=== PATIENT | female | born 1940 | race Caucasian/White ===

== ENCOUNTER 2021-12-22 14:14 | Outpatient (CLI) | payer OTHER, SELFPAY ==
--- NOTE | 2021-12-22 14:25 | ECHO_ITS ---
Patient Info Name: Savanna Kelly Age: 81 years : 1940 Gender: Female Ht: 64 in Wt: 157 lbs BSA: 1.81 m2 HR: 85 bpm BP: 157 / 89 mmHg Heart Rhythm: Sinus Rhythm Technical Quality: Fair Exam Date: 12/22/2021 2:41 PM Exam Location: [facility] Pul[facility] Patient Status: Outpatient Admit Date: 12/22/2021 Staff Ordering Physician: Boris Bryant DO Ship Scaler: Chelle Ovalles RDCS Attending Provider: Boris Bryant DO Referring Physician: Manny NATION; Exam Type: CA echo doppler color flow Study Info Indications R06.09 - Other forms of dyspnea Complete two-dimensional, color flow and Doppler transthoracic echocardiogram is performed. Summary 1. Complete two-dimensional, color flow and Doppler transthoracic echocardiogram is performed. 2. Left ventricular chamber dimension is normal. 3. Left ventricular systolic function is normal, estimated at 60-65%. 4. The left ventricular diastolic function is grade I diastolic dysfunction. 5. E/e' 9 is minimally elevated. 6. No pulmonary hypertension, estimated pulmonary arterial systolic pressure is 25 mmHg. Left Ventricle E/e' 9 is minimally elevated. Left ventricular chamber dimension is normal. Left ventricular systolic function is normal, estimated at 60-65%. The left ventricular diastolic function is grade I diastolic dysfunction. Right Ventricle Right ventricular chamber dimension is normal. Right ventricular systolic function is normal. Left Atria Left atrial chamber dimension is normal. Right Atria Right atrial chamber dimension is normal. Aortic Valve The aortic valve is trileaflet. There is no aortic valve stenosis. There is no aortic valve regurgitation. Pulmonic Valve There is no pulmonic regurgitation. Mitral Valve There is no mitral valve stenosis. There is no mitral valve regurgitation. Tricuspid Valve There is no tricuspid valve regurgitation. No pulmonary hypertension, estimated pulmonary arterial systolic pressure is 25 mmHg. Pericardium/Pleural There is no pericardial effusion. Inferior Vena Cava Normal inferior vena cava with >50% collapse upon inspiration consistent with normal right atrial pressure, 5 mmHg. Aorta The aortic root size at the sinus of Valsalva is normal. Left Ventricular Outflow Tract Name Value Normal LVOT 2D LVOT Diameter 2.0 cm LVOT Doppler LVOT Peak Gradient 4 mmHg LVOT Mean Gradient 2 mmHg LVOT VTI 17 cm LVOT VTI/AV VTI Ratio 0.8 LVOT Stroke Volume 53 ml LVOT CO 3.7 l/min LVOT CI 2.1 l/min/m2 Pulmonic Valve Name Value Normal RVOT Doppler RVOT Peak Gradient 3 mmHg PV Doppler
== END 2021-12-22 14:15 | disposition home or self-care (01) ==
PROVIDERS: PCP Emergency Medicine; Visit Provider Internal Medicine Cardiovascular Disease
DX: R06.09 Other forms of dyspnea (principal)
CPT/HCPCS: 93306

== ENCOUNTER → 2022-03-16 14:23 | Outpatient (CLI) | payer OTHER, SELFPAY ==
--- NOTE | ~2022-03-16 | DEXA_ITS ---
Bone Density Report Name: ELENI BREWER Age: 81 Sex: Female Ethnicity: White Date of : 1940 Indication: postmenopausal; screening for osteoporosis; height loss; Referring Provider: JUAN MCCAULEY Study: Bone densitometry was performed. Exam Date: March 16, 2022 Accession number: [id number] Bone Density: Region BMD T-score Z-score Classification AP Spine (L2, L3, L4) 1.066 -0.1 2.8 Normal Femoral Neck (Left) 0.743 -1.0 1.5 Normal Total Hip (Left) 0.898 -0.4 1.9 Normal Femoral Neck (Right) 0.729 -1.1 1.3 Osteopenia Total Hip (Right) 0.895 -0.4 1.8 Normal Total Hip Mean 0.897 -0.4 1.9 Normal World Health Organization criteria for BMD impression classify patients as: Normal (T-score at or above -1.0), Osteopenia (T-score between -1.0 and -2.5), or Osteoporosis (T-score at or below -2.5). 10-year Fracture Risk(1): Major Osteoporotic Fracture 12% Hip Fracture 2.7% Reported Risk Factors: [place] (), Neck BMD=0.729, BMI=27.9 (1) FRAX(R) Version 3.08. Fracture probability calculated for an untreated patient. Fracture probability may be lower if the patient has received treatment. Previous Exams: Region Exam Age BMD T-score BMD Change BMD Change Date g/cm2 vs Baseline vs Previous AP Spine(L2, L3, L4) 03/16/2022 81 1.066 -0.1 -0.050* 0.014 02/19/2019 78 1.053 -0.2 -0.064* -0.064* 10/30/2016 76 1.116 0.3 Total Hip(Left) 03/16/2022 81 0.898 -0.4 -0.023 0.001 02/19/2019 78 0.897 -0.4 -0.024 -0.024 10/30/2016 76 0.920 -0.2 Total Hip(Right) 03/16/2022 81 0.895 -0.4 0.001 0.008 02/19/2019 78 0.887 -0.5 -0.008 -0.008 10/30/2016 76 0.895 -0.4 *Denotes significance at 95% confidence level, LSC for AP Spine = 0.022 g/cm2, LSC for Total Hip = 0.027 g/cm2 Clinical Information Provided by Patient: Has used the following medications: Vitamin D, Calcium Patient maximum height was 64.5 Menopause Age: 52 No regular weight bearing exercise Drinks caffeinated beverages Onset of menses at age 11 Number of children 3 Impression: The patient has low bone mass, based on the Right Femoral Neck T-score. The patient has an estimated ten-year risk of hip fracture of 2.7% and an estimated ten-year risk of major fracture of 12%, based on the WHO FRAX algorithm. No significant bone loss was obs
== END ==
PROVIDERS: PCP Emergency Medicine; Visit Provider Emergency Medicine
DX: Z78.0 Asymptomatic menopausal state (principal); M85.851 Other specified disorders of bone density and structure, right thigh
CPT/HCPCS: 77080

== ENCOUNTER 2022-03-18 09:43 | Emergency (ER) | payer OTHER, SELFPAY ==
--- NOTE | ~2022-03-18 | XR_ITS ---
XR wrist RT 2V 03/18/2022 10:10 Indication: Right wrist pain and swelling Procedure: 2 views right wrist Comparison: No prior studies for comparison. Findings: There is advanced osteoarthritis of the triscaphe and first carpal metacarpal joint. There is widening of the scapholunate distance. Osteopenia. There is a small ossific density dorsal to the carpal bones, suspicious for an old triquetral avulsion fracture. No acute fracture is identified. Th ere is an old ulnar styloid fracture. Impression: 1: No acute fracture. 2: Polyarticular osteoarthritis. Reviewed, dictated and finalized at location A. Impression: 1: No acute fracture. 2: Polyarticular osteoarthritis.
[2022-03-18 09:54] VITALS: BP 154/82; PULSE 86; RESP 20; TEMP 36.9; O2SAT 99
[2022-03-18] MEDS: HYDROcodone/acetaminophen (*CRX) 5-325 MG TABLET 1 TAB PO (11:34)
[2022-03-18 13:01] LABS: Basophils Absolute Auto 0.1 K/mm3 (0.0-0.1); Basophils Percent Auto 0.6 % (0.2-1.2); Eosinophils Absolute Auto 0.1 K/mm3 (0-0.3); Eosinophils Percent Auto 0.4 % (0-4.4); Hematocrit 41.9 % (37.0-47.0); Hemoglobin 13.7 g/dL (12.0-15.0); Immature Granulocyte Absolute 0.05 K/mm3 (0.00-0.031); Immature Granulocyte Percent A 0.4 % (0-0.5); Lymphocytes Absolute Auto 3.57 K/mm3 (0.9-3.2); Lymphocytes Percent Auto 25.6 % (18.3-44.2); Mean Corpuscular HGB Conc 32.7 g/dl (32-36); Mean Corpuscular Hemoglobin 30.4 pg (26-34); Mean Corpuscular Volume 93.1 fl (80-100); Mean Platelet Volume 9.3 fl (7.4-10.4); Monocytes Absolute Auto 0.8 K/mm3 (0.1-0.6); Neutrophils Absolute Auto 9.3 K/mm3 (1.3-6.7); Platelet Count Result 410 k/mm3 (150-375); Red Cell Distribution Width 12.5 % (11.5-14.5); White Blood Count 13.9 K/mm3 (4.5-10.0)
[2022-03-18 13:05] LABS: Anion Gap 16 mmol/L (8-16); Blood Urea Nitrogen 14 mg/dL (7-17); CRP 4.7 mg/dL (<1.0); Calcium 9.3 mg/dL (8.4-10.2); Carbon Dioxide 24 mmol/L (22-30); Chloride 101 mmol/L (98-107); Estimated CRCL calculation 37 ml/min; Estimated Glomerular Filt Rate 60; Glucose 111 mg/dL (65-110); Potassium 3.9 mmol/L (3.4-5.0); Sodium 141 mmol/L (137-145); Uric Acid 5.9 mg/dL (2.5-7.5)
--- NOTE | 2022-03-18 13:16 | ED.UPPEXIN ---
HPI - Extremity Injury (Upper) General Chief Complaint: Extremity Injury, Upper Stated Complaint: right hand swelling Time Seen by Provider: 03/18/22 11:12 History of Present Illness HPI narrative: Patient is an 81-year-old female who presents ER with right wrist pain and swelling. Worsening over the last day. She does not believe she has suffered any trauma. Worse with range of motion. No numbness or tingling. She has not tried any pain medication. Denies fevers or chills or sweats. No recent infections. She has had no recent dental cleanings or invasive procedures. Denies history of rheumatoid arthritis or gout but she does have a daughter with rheumatoid arthritis. Related Data Home Medications Medication Instructions Recorded Confirmed cholecalciferol (vitamin D3) 50 2,000 unit PO DAILY 05/28/19 11/30/21 mcg (2,000 unit) tablet omega-3 fatty acids 1,000 mg 1,000 mg PO DAILY 06/01/20 11/30/21 capsule (Fish Oil Concentrate) Allergies Allergy/AdvReac Type Severity Reaction Status Date / Time codeine Allergy Unknown Unknown Verified 01/16/22 11:25 Review of Systems Review of Systems: All systems reviewed & are unremarkable except as noted in HPI and below Constitutional: Constitutional: Denies chills and Denies fever(s) Cardiovascular: Cardiovascular: Denies chest pain and Denies rapid heart rate Respiratory: Respiratory: Denies cough and Denies dyspnea Musculoskeletal: Musculoskeletal: Denies myalgias, Reports arthralgias and Reports joint swelling Integumentary/Breasts: Skin/Breast: Reports erythema, Denies rash and Denies skin ulcer PMFSH Past Medical History Medical History (Updated 03/18/22 @ 13:17 by Mihai Malcolm MD) Dizziness Headache, migraine Hyperlipidemia Hypertension Thyroid disease Family History Family History Father Emphysema lung Mother Heart disease Mother Family history of cardiovascular disease Father Family history of emphysema Sibling Carcinoma of colon Social History Social History Smoking status: Never smoker Alcohol intake: never Exam Narrative: GENERAL: Well-appearing, well-nourished, and in no acute distress. HEAD: Normocephalic, atraumatic. CHEST: Clear to auscultation. No respiratory distress. HEART: Regular rate and rhythm. Normal peripheral pulses. EXTREMITIES: Normal range of motion. No edema. Right wrist swollen and warm. Slight erythema. Fullness mainly at the dorsal wrist and anatomic snuffbox. Patient has range of motion but slightly decreased with flexion due to pain at extremes of flexion. No numbness or tingling. Supination and pronation intact. No breaks in skin. No lymphangitic streaking. SKIN: Warm, dry, no rash. NEURO: Alert and oriented x3. PSYCH: Normal mood and affect. Course Course Emergency Course: Patient given some Sanford for pain. Recommend cock-up wrist splint for home for comfort. Patient will need anti-inflammatory treatment. Suspicion for infectious arthritis very low given she is afebrile and has range of motion of the wrist. Inflammatory markers only mildly elevated. Suspect she will benefit from prednisone and immobilization. We will also give Sanford for breakthrough pain. Discussed return precautions with patient and daughter. Vital Signs Vital signs: Vital Signs Temperature 98.5 F 03/18/22 09:54 Pulse Rate 86 03/18/22 09:54 Respiratory Rate 20 03/18/22 09:54 Blood Pressure 154/82 H 03/18/22 09:54 Pulse Oximetry 99 03/18/22 09:54 Oxygen Delivery Room Air 03/18/22 09:54 Temperature 98.5 F 03/18/22 09:54 Pulse Rate 88 03/18/22 14:40 Respiratory Rate 16 03/18/22 14:40 Blood Pressure 139/74 03/18/22 14:40 Pulse Oximetry 97 03/18/22 14:40 Oxygen Delivery Room Air 03/18/22 09:54 MDM - Extremity Injury (Upper) Lab Data Result diagrams:
[2022-03-18 13:28] LABS: Erythrocyte Sedimentation Rate 31 mm/hr (0-20)
[2022-03-18 14:40] VITALS: BP 139/74; PULSE 88; RESP 16; O2SAT 97
== END 2022-03-18 14:20 | disposition home or self-care (01) ==
PROVIDERS: Emergency Provider Emergency Medicine; PCP Emergency Medicine
DX: M19.031 Primary osteoarthritis, right wrist (principal); M18.9 Osteoarthritis of first carpometacarpal joint, unspecified; E78.5 Hyperlipidemia, unspecified; I10 Essential (primary) hypertension; E07.9 Disorder of thyroid, unspecified
CPT/HCPCS: 36415; 73100; 80048; 84550; 85025; 85652; 86140; 99283; A9270

== ENCOUNTER 2024-12-07 10:09 | Outpatient (CLI) | payer OTHER, SELFPAY ==
--- NOTE | ~2024-12-07 | DEXA_ITS ---
Bone Density Report Name: ELENI BREWER Age: 84 Sex: Female Ethnicity: White Date of : 1940 Indication: postmenopausal; screening for osteoporosis; height loss; Referring Provider: JUAN MCCAULEY Study: Bone densitometry was performed. Exam Date: December 07, 2024 Accession number: [id number] Bone Density: Region BMD T-score Z-score Classification AP Spine(L2, L3, L4) 1.065 -0.1 2.8 Normal Femoral Neck (Left) 0.692 -1.4 1.1 Osteopenia Total Hip (Left) 0.895 -0.4 1.9 Normal Femoral Neck (Right) 0.709 -1.3 1.3 Osteopenia Total Hip (Right) 0.879 -0.5 1.8 Normal Total Hip Mean 0.887 -0.5 1.9 Normal World Health Organization criteria for BMD impression classify patients as: Normal (T-score at or above -1.0), Osteopenia (T-score between -1.0 and -2.5), or Osteoporosis (T-score at or below -2.5). 10-year Fracture Risk(1): Major Osteoporotic Fracture 13% Hip Fracture 3.4% Reported Risk Factors: [place] (), Neck BMD=0.692, BMI=27.8 (1) FRAX(R) Version 3.08. Fracture probability calculated for an untreated patient. Fracture probability may be lower if the patient has received treatment. Previous Exams: -- Region Exam Age BMD T-score BMD Change BMD Change Date g/cm2 vs Baseline vs Previous -- AP Spine (L2-L4) 12/07/2024 84 1.065 -0.1 -4.6%* -0.1% 03/16/2022 81 1.066 -0.1 -4.5%* 1.3% 02/19/2019 78 1.053 -0.2 -5.7%* -5.7%* 10/30/2016 76 1.116 0.3 Total Hip(Left) 12/07/2024 84 0.895 -0.4 -2.8% -0.3% 03/16/2022 81 0.898 -0.4 -2.5% 0.1% 02/19/2019 78 0.897 -0.4 -2.6% -2.6% 10/30/2016 76 0.920 -0.2 Total Hip(Right) 12/07/2024 84 0.879 -0.5 -1.7% -1.8% 03/16/2022 81 0.895 -0.4 0.1% 1.0% 02/19/2019 78 0.887 -0.5 -0.9% -0.9% 10/30/2016 76 0.895 -0.4 -- *Denotes significance at 95% confidence level, LSC for AP Spine = 0.022 g/cm2, LSC for Total Hip = 0.027 g/cm2 Clinical Information Provided by Patient: Patient maximum height was 65 Menopause Age: 52 No regular weight bearing exercise Drinks caffeinated beverages Onset of menses at age 11 Number of children 3 Impression: The patient has low bone mass, based on the Left Femoral Neck T-score. The patient has an estimated ten-year risk of hip fracture of 3.4% and an estimated ten-year risk of major fracture of 13%, based on the WHO FRAX algorithm. No significant bone loss was observed. Discussion: BONE DENSITY IS LOW AT ONE OR MORE SKELETAL SITES. THE PATIENT'S BMD AND CLINICAL RISK FACTORS CONTRIBUTE TO THIS PATIENT'S INCREASED RISK OF FRACTURE. This patient's lowest T-score is low at one or more skeletal sites. It meets the World Health Organization's (WHO) criteria for ?low bone mass? (T-score between -1.0 and -2.5). The patient's 10-year risk of hip fracture as calculated by FRAX exceeds the threshold where pharmacological therapy is recommended by the National Osteoporosis Foundation (NOF). However, all treatment decisions require clinical judgment and consideration of individual patient factors, including patient preferences, comorbidities, previous drug use, risk factors not captured in the FRAX model (e.g., frailty, falls, vitamin D deficiency, increased bone turnover, interval significant decline in bone density) and possible under or overestimation of fracture risk by FRAX. The patient should follow a healthful lifestyle (good nutrition with adequate calcium and vitamin D, and appropriate weight-bearing exercise). Follow-Up: Consider a repeat BMD and Vertebral Fracture Assessment (VFA) exam in 2 years or sooner if medically necessary, to reassess this patient's status. Reported by: ANNALISA on 12/07/2024 10:38:00 AM. Reviewed, dictated and finalized at location A.
== END 2024-12-07 10:10 | disposition home or self-care (01) ==
LOC: MICIMG 10:10
PROVIDERS: PCP Emergency Medicine; Visit Provider Emergency Medicine
DX: Z78.0 Asymptomatic menopausal state (principal); E55.9 Vitamin D deficiency, unspecified; M85.852 Other specified disorders of bone density and structure, left thigh; M85.851 Other specified disorders of bone density and structure, right thigh
CPT/HCPCS: 77080